=== PATIENT | male | born 1995 | race Two or more races ===

== ENCOUNTER 2018-11-16 11:20 | Inpatient (IN) | payer OTHER, MEDICAID ==
[~2018-11-16] VITALS: Ht 200.7 cm; Wt 50.3 kg
[2018-11-16] MEDS ORDERED: VANCOMYCIN 1 G PREMIX 200 ML IV ONE (12:00)
[2018-11-16] MEDS ORDERED: SODIUM CHLORIDE 0.9% 1000ML BAG (SEPSIS BOLUS) IV ONE (12:00)
[2018-11-16] MEDS ORDERED: PIPERACILLIN/TAZ 3.375G PREMIX 50 ML IV ONE (12:00)
[2018-11-16 12:25] LABS: BASOPHILS % 0.6 % (0.0-2.0); EOSINOPHILS % 1.2 % (0.0-5.0); HEMATOCRIT. 35.1 % (42.0-52.0); HEMOGLOBIN. 11.8 g/dL (14.0-18.0); LYMPHOCYTES % 17.8 % (20.0-50.0); MEAN CORPUSCULAR HEMOGLOBIN 28.4 pg (28.0-32.0); MEAN CORPUSCULAR VOLUME 84.3 fL (80.0-94.0); MEAN PLATELET VOLUME 7.5 fl (7.4-10.4); MONOCYTES % 10.4 % (2.0-8.0); PLATELET 372 x1000/uL (130-400); RED BLOOD CELL COUNT 4.16 mill/uL (4.7-6.1); RED CELL DISTRIBUTION WIDTH 15.8 % (11.6-14.6)
[2018-11-16 12:28] LABS: CHLORIDE 105 mEq/L (98-107)
[2018-11-16 12:33] LABS: INR 1.2; PARTIAL THROMBOPLASTIN TIME 36.9 sec (23.4-31.0); PROTHROMBIN TIME 12.2 sec (9.6-11.0)
[2018-11-16 13:12] LABS: CLARITY URINE CLOUDY (CLEAR); COLOR URINE YELLOW (YELLOW); KETONES URINE 2+ (NEGATIVE); LEUKOCYTE ESTERASE URINE 3+ (NEGATIVE); NITRITE URINE NEGATIVE (NEGATIVE); OCCULT BLOOD URINE 1+ (NEGATIVE); PROTEIN URINE 1+ (NEGATIVE)
[2018-11-16] MEDS ORDERED: GUAIFENESIN 200MG/10ML SUGAR FREE UDC PO PRN (13:30)
[2018-11-16] MEDS ORDERED: MAGNESIUM/ALUMINUM HYDROXIDE/SIMETHICONE 30ML UDC PO PRN (13:30)
[2018-11-16] MEDS ORDERED: DOCUSATE SODIUM 100MG CAPSULE PO PRN (13:30)
[2018-11-16] MEDS ORDERED: DIPHENHYDRAMINE 50MG/ML VIAL IV PRN (13:30)
[2018-11-16] MEDS ORDERED: LORAZEPAM 2MG/ML CPJ IV PRN (13:30)
[2018-11-16] MEDS ORDERED: ACETAMINOPHEN 325MG TABLET PO PRN (13:30)
[2018-11-16] MEDS ORDERED: ONDANSETRON HCL 4MG/2ML INJ IV PRN (13:30)
[2018-11-16] MEDS ORDERED: IOHEXOL-300 100 ML BOTTLE ONE (13:31)
[2018-11-16 13:34] LABS: *AMPHETAMINES SCREEN URINE NEGATIVE (NEGATIVE)
[2018-11-16 13:35] LABS: *BARBITURATES SCREEN URINE NEGATIVE (NEGATIVE); *BENZODIAZEPINES SCREEN URINE NEGATIVE (NEGATIVE); *COCAINE SCREEN URINE NEGATIVE (NEGATIVE); METHADONE URINE SCREEN NEGATIVE (NEGATIVE); OPIATES URINE SCREEN NEGATIVE (NEGATIVE); PHENCYCLIDINE URINE SCREEN NEGATIVE (NEGATIVE)
[2018-11-16 13:36] LABS: CANNABINOID URINE SCREEN PRESUMTIVE POSITIVE (NEGATIVE)
[2018-11-16] MEDS ORDERED: ENOXAPARIN 40MG/0.4ML SYR SUBCUT SCH (18:00)
[2018-11-16 20:00] VITALS: BP 117/71
== END 2018-11-16 21:35 | disposition left against medical advice (07) | DRG 383 ==
LOC: ER 11:20 → EDBEDREQ 13:26 → 6EST 13:32 → ENRESERV 15:44
PROVIDERS: ADMIT Internal Medicine Geriatric Medicine; ATTEND Internal Medicine Geriatric Medicine
DX: L02.31 Cutaneous abscess of buttock (principal); L89.150 Pressure ulcer of sacral region, unstageable; E46 Unspecified protein-calorie malnutrition; G82.21 Paraplegia, complete; Z53.21 Procedure and treatment not carried out due to patient leaving prior to being seen by health care provider; F17.210 Nicotine dependence, cigarettes, uncomplicated; Z95.828 Presence of other vascular implants and grafts; Z59.0 Homelessness; Z68.1 Body mass index [BMI] 19.9 or less, adult
CPT/HCPCS: 36415; 71045; 72220; 74177; 80305; 83605; 84134; 84145; 85651; 87070; 87077; 87186; 93005; 99285; J2543; J3370; J7030; Q9967; A4315